=== PATIENT | male | born 1995 | race Two or more races ===

== ENCOUNTER 2019-03-12 22:44 | Emergency (ER) | payer BC ==
[~2019-03-12] VITALS: Ht 180.3 cm; Wt 92.5 kg
[2019-03-12 22:53] VITALS: BP 131/86
[2019-03-12] MEDS ORDERED: DICL50TA4 PO (23:50)
[2019-03-12] MEDS ORDERED: CYCL5TAB PO (23:50)
[2019-03-13] MEDS ORDERED: diazePAM 5 MG TABLET PO ONE
[2019-03-13] MEDS ORDERED: KETOROLAC 60 MG/2 ML VIAL. IM ONE
--- NOTE | 2019-03-13 00:12 | RAD ---
Three-view lumbar spine radiographs 03/12/2019 CLINICAL HISTORY: Low back pain. AP and 2 lateral digital radiographs of lumbar spine were obtained. Minimal S-shaped curvature of the thoracolumbar spine is seen. No fracture or subluxation is seen. Mild degenerative changes are seen involving L4-5 disc space consisting of vertebral endplate sclerosis and minimal anterior and posterior vertebral body osteophyte formation. IMPRESSION: Mild degenerative changes are seen involving the lower lumbar spine. No acute osseous abnormality is seen. Electronically signed by: Rashid Perez MD (03/13/2019 12:09 AM) [facility]
--- NOTE | 2019-03-13 03:45 | PHYS DOC ---
Past Medical History Past Medical History: No Pertinent History Past Surgical History: Appendectomy Alcohol Use: None Drug Use: None Adult General Chief Complaint Chief Complaint: LOWER BACK PAIN OR INJURY HPI HPI Patient is a 23 year old male couple days of low back pain dull moderate radiates to her buttocks happened after lifting a box normal bowel bladder incontinence symptoms moderate worsening with time pain increased with walking no fever He does have a mass on his right upper bicep. He is complaining have it removed on Monday is thinks it could be a skin cancer he is not sure yet it has not been biopsied Review of Systems Review of Systems Constitutional: Denies fever or chills [] Eyes: Denies change in visual acuity, redness, or eye pain [] HENT: Denies nasal congestion or sore throat [] Respiratory: Denies cough or shortness of breath [] Cardiovascular: No additional information not addressed in HPI [] GI: Denies abdominal pain, nausea, vomiting, bloody stools or diarrhea [] : Denies dysuria or hematuria [] Musculoskeletal: Denies back pain or joint pain [] Integument: Denies rash or skin lesions [] Neurologic: Denies headache, focal weakness or sensory changes [] Endocrine: Denies polyuria or polydipsia [] All other systems were reviewed and found to be within normal limits, except as documented in this note. Current Medications Current Medications Current Medications Medications (Trade) Dose Ordered Sig/[facility] Start Time Stop Time Status Last Admin Dose Admin Diazepam (Valium) 5 mg 1X ONCE 03/13/19 00:00 03/13/19 00:01 DC 03/13/19 00:05 5 MG Ketorolac Tromethamine (Toradol Im) 30 mg 1X ONCE 03/13/19 00:00 03/13/19 00:01 DC 03/13/19 00:05 30 MG Allergies Allergies Allergies Coded Allergies Type Severity Reaction Last Updated Verified No Known Drug Allergies 03/12/19 No Physical Exam Physical Exam Constitutional: Well developed, well nourished, no acute distress, non-toxic appearance. [] HENT: Normocephalic, atraumatic, bilateral external ears normal, oropharynx [address], no oral exudates, nose normal. [] Eyes: PERRLA, EOMI, conjunctiva normal, no discharge. [] Neck: Normal range of motion, no tenderness, supple, no stridor. [] Pulmonary: Normal respiratory effort no increased work of breathing no obvious chest wall trauma Abdomen: Bowel sounds normal, soft, no tenderness, no masses, no pulsatile masses. [] Skin: 3-4 cm erythematous raised lesion on the right upper bicep Back: Paraspinous tenderness bilaterally Extremities: No tenderness, no cyanosis, no clubbing, ROM intact, no edema. [] Neurologic: Alert and oriented X 3, normal motor function, normal sensory functi on, no focal deficits noted. [] Psychologic: Affect normal, judgement normal, mood normal. [] Current Patient Data Vital Signs Vital Signs Date Time Temp Pulse Resp B/P (MAP) Pulse Ox O2 Delivery O2 Flow Rate FiO2 03/12/19 22:53 98.6 86 16 131/86 (101) 98 Room Air 98.6 EKG EKG [] Radiology/Procedures Radiology/Procedures [] Impressions: IMPRESSION: Mild degenerative changes are seen involving the lower lumbar spine. No acute osseous abnormality is seen. Electronically signed by: Rashid Helton MD (03/13/2019 12:09 AM) [facility] DICTATED and SIGNED BY: RASHID HELTON MD DATE: 03/13/19 0009 Course & Med Decision Making Course & Med Decision Making Pertinent Labs and Imaging studies reviewed. (See chart for details) []Cord compression by history or physical examination patient is able to ambulate in the emergency room symptomatic treatment given return precautions discussed patient voiced understanding Dragon Disclaimer Dragkalpana Disclaimer This electronic medical record was generated, in whole or in part, using a voice recognition dictation system. Departure Departure Impression: Primary Impression: Low back pain Disposition: 01 HOME, SELF-CARE Condition: STABLE Patient Instructions: Back Pain, Adult, [id number] Scripts Diclofenac Sodium (DICLOFENAC SODIUM) 50 Mg Tablet. 1 TAB PO BID PRN for PAIN, #20 TAB 0 Refills Prov: PITA ROYAL MD 03/12/19 Cyclobenzaprine Hcl (CYCLOBENZAPRINE HCL) 5 Mg Tablet 5 MG PO PRN TID PRN for PAIN, #15 TAB Prov: PITA ROYAL MD 03/12/19 PITA ROYAL MD March 13, 2019 03:45
== END 2019-03-13 00:19 | disposition home or self-care (01) ==
LOC: ER 22:44
DX: M54.5 Low back pain (principal); R22.31 Localized swelling, mass and lump, right upper limb; Z90.89 Acquired absence of other organs
CPT/HCPCS: 72100; 96372; 99284; J1885

== ENCOUNTER 2019-03-27 00:27 | Emergency (ER) | payer BC ==
[~2019-03-27] VITALS: Ht 177.8 cm; Wt 92.5 kg
[~2019-03-27 00:27] MED LIST: CYCL5TAB PO; DICL50TA4 PO
--- NOTE | 2019-03-27 01:08 | PHYS DOC ---
Past Medical History Past Medical History: No Pertinent History Past Surgical History: Appendectomy, Other Additional Past Surgical Histo: TUMOR TO RUE Alcohol Use: None Drug Use: None Adult General Chief Complaint Chief Complaint: Palpitations HPI HPI Patient is a 23 year old male who presents with complaining of elevation of blood pressure. Patient states he had right arm tumor removal under general anesthesia and and had sudden onset of palpitation and mild shortness of breath with elevation of blood pressure around 2330 tonight without chest pain. Patient complaining of bilateral hand paresthesia and lightheadedness. Patient denies history of DVT and immobilization. Patient states his surgeon warned him for possible blood clot and needs to come to ER if develops shortness of breath or palpitation. Review of Systems Review of Systems Constitutional: Denies fever or chills [] Eyes: Denies change in visual acuity, redness, or eye pain [] HENT: Denies nasal congestion or sore throat [] Respiratory: Denies cough or shortness of breath [] Cardiovascular: No additional information not addressed in HPI [] GI: Denies abdominal pain, nausea, vomiting, bloody stools or diarrhea [] : Denies dysuria or hematuria [] Musculoskeletal: Denies back pain or joint pain [] Integument: Denies rash or skin lesions [] Neurologic: Denies headache, focal weakness or sensory changes [] Endocrine: Denies polyuria or polydipsia [] All other systems were reviewed and found to be within normal limits, except as documented in this note. Current Medications Current Medications Current Medications Medications (Trade) Dose Ordered Sig/[facility] Start Time Stop Time Status Last Admin Dose Admin Lorazepam (Ativan Inj) 0.5 mg 1X ONCE 03/27/19 01:30 03/27/19 01:31 DC 03/27/19 01:19 0.5 MG Sodium Chloride 1,000 ml @ 1,000 mls/hr Q1H 03/27/19 01:30 03/27/19 02:29 DC 03/27/19 01:19 1,000 MLS/HR Allergies Allergies Allergies Coded Allergies Type Severity Reaction Last Updated Verified No Known Drug Allergies 03/12/19 No Physical Exam Physical Exam Constitutional: Well developed, well nourished, no acute distress, non-toxic appearance. [] HENT: Normocephalic, atraumatic, bilateral external ears normal, oropharynx moist, no oral exudates, nose normal. [] Eyes: PERRLA, EOMI, conjunctiva normal, no discharge. [] Neck: Normal range of motion, no tenderness, supple, no stridor. [] Cardiovascular: Tachycardia, no murmur [] Lungs & Thorax: Bilateral breath sounds clear to auscultation [] Abdomen: Bowel sounds normal, soft, no tenderness, no masses, no pulsatile masses. [] Skin: Warm, dry, no erythema, no rash. [] Back: No tenderness, no CVA tenderness. [] Extremities: Surgical dressing in right arm, no tenderness, no cyanosis, no clubbing, ROM intact, no edema. [] Neurologic: Alert and oriented X 3, normal motor function, normal sensory function, no focal deficits noted. [] Psychologic: Affect normal, judgement normal, mood normal. [] Current Patient Data Vital Signs Vital Signs Date Time Temp Pulse Resp B/P (MAP) Pulse Ox O2 Delivery O2 Flow Rate FiO2 03/27/19 02:43 84 18 127/83 (98) 99 Room Air 03/27/19 00:30 99.2 99.2 Lab Values Laboratory Tests Test 03/27/19 01:22 White Blood Count 14.3 x10^3/uL (4.0-11.0) H Red Blood Count 4.78 x10^6/uL (4.30-5.70) Hemoglobin 14.1 g/dL (13.0-17.5) Hematocrit 42.7 % (39.0-53.0) Mean Corpuscular Volume 89 fL (79-100) Mean Corpuscular Hemoglobin 30 pg (25-35) Mean Corpuscular Hemoglobin Concent 33 g/dL (31-37) Red Cell Distribution Width 13.2 % (11.5-14.5) Platelet Count 226 x10^3/uL (140-400) Neutrophils (%) (Auto) 91 % (31-73) H Lymphocytes (%) (Auto) 6 % (24-48) L Monocytes (%) (Auto) 4 % (0-9) Eosinophils (%) (Auto) 0 % (0-3) Basophils (%) (Auto) 0 % (0-3) Neutrophils # (Auto) 13.0 x10^3uL (1.8-7.7) H Lymphocytes # (Auto) 0.8 x10^3/uL (1.0-4.8) L Monocytes # (Auto) 0.5 x10^3/uL (0.0-1.1) Eosinophils # (Auto) 0.0 x10^3/uL (0.0-0.7) Basophils # (Auto) 0.0 x10^3/uL (0.0-0.2) Segmented Neutrophils % 82 % (35-66) H Band Neutrophils % 9 % (0-9) Lymphocytes % 8 % (24-48) L Monocytes % 1 % (0-10) Platelet Estimate Adequate (ADEQUATE) D-Dimer (Luma) < 0.27 ug/mlFEU Sodium Level 141 mmol/L (136-145) Potassium Level 4.1 mmol/L (3.5-5.1) Chloride Level 104 mmol/L (98-107) Carbon Dioxide Level 24 mmol/L (21-32) Anion Gap 13 (6-14) Blood Urea Nitrogen 12 mg/dL (8-26) Creatinine 0.9 mg/dL (0.7-1.3) Estimated GFR (Cockcroft-Gault) 105.5 BUN/Creatinine Ratio 13 (6-20) Glucose Level 156 mg/dL (70-99) H Calcium Level 9.4 mg/dL (8.5-10.1) Total Bilirubin 0.6 mg/dL (0.2-1.0) Aspartate Amino Transferase (AST) 16 U/L (15-37) Alanine Aminotransferase (ALT) 30 U/L (16-63) Alkaline Phosphatase 48 U/L (46-116) Creatine Kinase 100 U/L (39-308) Troponin I Quantitative < 0.017 ng/mL (0.000-0.055) Total Protein 7.2 g/dL (6.4-8.2) Albumin 4.1 g/dL (3.4-5.0) Albumin/Globulin Ratio 1.3 (1.0-1.7) Laboratory Tests 03/27/19 01:22 Laboratory Tests 03/27/19 01:22 EKG EKG EKG interpreted by me. EKG at 0022 showed sinus tachycardia at rate of 124, otherwise normal EKG Radiology/Procedures Radiology/Procedures [] Course & Med Decision Making Course & Med Decision Making Pertinent Labs and Imaging studies reviewed. (See chart for details) Evaluation of patient in ER showed 23-year-old male patient developed shortness of breath and dictation minor surgery with general anesthesia today. Patient had unremarkable physical exam except for tachycardia and anxiety that improved with this. Labs including a d-dimer was unremarkable. Plan to discharge patient home with diagnose of anxiety. Dragon Disclaimer Dragon Disclaimer This electronic medical record was generated, in whole or in part, using a voice recognition dictation system. Departure Departure Impression: Primary Impression: Panic attack Disposition: HOME, SELF-CARE (at 0 234) Condition: IMPROVED Referrals: NO PCP (PCP) Patient Instructions: Anxiety and Panic Attacks Additional Instructions: Drink plenty of liquids Follow-up with your primary care physician in 3-5 days Return to ER if not getting better LEIGH ANN PANIAGUA MD March 27, 2019 01:08
[2019-03-27] MEDS ORDERED: IV NORMAL SALINE 1000ML BAG 1,000 ML IV SCH (01:30)
[2019-03-27 01:35] LABS: BASO % 0 % (0-3); EOS % 0 % (0-3); HEMATOCRIT 42.7 % (39.0-53.0); HEMOGLOBIN 14.1 g/dL (13.0-17.5); LYMPH # 0.8 x10^3/uL (1.0-4.8); LYMPH % 6 % (24-48); MEAN CORPUSCULAR HEMOGLOBIN 30 pg (25-35); MEAN CORPUSCULAR HGB CONC 33 g/dL (31-37); MEAN CORPUSCULAR VOLUME 89 fL (79-100); MONO # 0.5 x10^3/uL (0.0-1.1); MONO % 4 % (0-9); NEUT % 91 % (31-73); PLATELET COUNT 226 x10^3/uL (140-400); RED BLOOD COUNT 4.78 x10^6/uL (4.30-5.70); RED CELL DISTRIBUTION WIDTH 13.2 % (11.5-14.5); WHITE BLOOD COUNT 14.3 x10^3/uL (4.0-11.0)
[2019-03-27 01:58] LABS: CALCIUM 9.4 mg/dL (8.5-10.1); CREATININE 0.9 mg/dL (0.7-1.3); GFR 105.5; POTASSIUM 4.1 mmol/L (3.5-5.1)
[2019-03-27 02:05] LABS: ALBUMIN 4.1 g/dL (3.4-5.0); ALBUMIN/GLOBULIN RATIO 1.3 (1.0-1.7); TOTAL BILIRUBIN 0.6 mg/dL (0.2-1.0); TOTAL PROTEIN 7.2 g/dL (6.4-8.2)
[2019-03-27 02:43] VITALS: BP 127/83
[2019-03-27 05:13] LABS: % BANDS 9 % (0-9); % LYMPHS 8 % (24-48); % MONOS 1 % (0-10); % SEGS 82 % (35-66); PLT ESTIMATE ADEQUATE (ADEQUATE)
--- NOTE | 2019-03-27 06:23 | EKG ---
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
== END 2019-03-27 02:43 | disposition home or self-care (01) ==
LOC: ER 00:27
DX: F41.0 Panic disorder [episodic paroxysmal anxiety] (principal); R00.2 Palpitations; R06.02 Shortness of breath; R03.0 Elevated blood-pressure reading, without diagnosis of hypertension; R42 Dizziness and giddiness; R20.2 Paresthesia of skin; R00.0 Tachycardia, unspecified; Z90.89 Acquired absence of other organs
CPT/HCPCS: 36415; 80053; 82550; 84484; 85007; 85025; 85379; 93005; 96361; 96374; 99285; J2060; J7030

== ENCOUNTER 2019-04-01 04:10 | Emergency (ER) | payer BC ==
[~2019-04-01] VITALS: Ht 180.3 cm; Wt 92.5 kg
[2019-04-01 04:26] VITALS: BP 153/90
[2019-04-01] MEDS ORDERED: LORA-434 PO (04:40)
--- NOTE | 2019-04-01 04:44 | PHYS DOC ---
Past Medical History Past Medical History: No Pertinent History Past Surgical History: Appendectomy, Other Additional Past Surgical Histo: TUMOR TO RUE Alcohol Use: None Drug Use: None Adult General Chief Complaint Chief Complaint: ANXIETY/PANIC ATTACK HPI HPI Patient is a 23 year old male who presents with multiple complaints. He says he feels anxious he feels like his legs are constantly wanting to move he feels it is bilateral thighs. Addition he has numbness of both hands both legs around the middle he said his nose felt really cold he said he has a dry mouth he said he is been short of breath just like hard to catch his air he's had this symptom for several days he did have a soft tissue mass removed on his right upper extremity a little while back he came to the ER that next day and he had a negative d-dimer negative otherwise labs look stable no anemia was identified renal function was normal at that time. Apparently had intercourse at 2 AM he will stood up and got lightheaded did not pass out did eventually go to sleep and then woke up around 4 AM with recurrence of the above symptoms that he has been feeling for several days including during her last ER visit. Denies any suicidality thinks he might be a little bit depressed but he actually wanted to work the other day so he would have somebody to talk to but again he does not feel suicidal. Review of Systems Review of Systems Constitutional: Denies fever or chills [] Eyes: Denies change in visual acuity, redness, or eye pain [] HENT: Cardiovascular: No additional information not addressed in HPI [] GI: Denies abdominal pain, nausea, vomiting, bloody stools or diarrhea [] : Denies dysuria or hematuria [] Musculoskeletal: Denies back pain or joint pain [] Integument: Denies rash or skin lesions [] Neurologic: All other systems were reviewed and found to be within normal limits, except as documented in this note. Current Medications Current Medications Current Medications Medications (Trade) Dose Ordered Sig/[facility] Start Time Stop Time Status Last Admin Dose Admin Lorazepam (Ativan Inj) 1 mg 1X ONCE 04/01/19 04:45 04/01/19 04:46 UNV Allergies Allergies Allergies Coded Allergies Type Severity Reaction Last Updated Verified No Known Drug Allergies 03/12/19 No Physical Exam Physical Exam Constitutional: Well developed, well nourished, no acute distress, non-toxic appearance. [] HENT: Normocephalic, atraumatic, bilateral external ears normal, oropharynx moist, no oral exudates, nose normal. [] Eyes: PERRLA, EOMI, conjunctiva normal, no discharge. [] Neck: Normal range of motion, no tenderness, supple, no stridor. [] Cardiovascular:Heart rate regular rhythm, no murmur [] Lungs & Thorax: Bilateral breath sounds clear to auscultation [] Abdomen: Bowel sounds normal, soft, no tenderness, no masses, no pulsatile masses. [] Skin: Warm, dry, no erythema, no rash. [] Well-healing surgical incision right bicep area sutures in place no signs of infection Back: No tenderness, no CVA tenderness. [] Extremities: No tenderness, no cyanosis, no clubbing, ROM intact, no edema. [] Neurologic: Alert and oriented X 3, normal motor function, normal sensory function, no focal deficits noted. [] Psychologic: Affect normal, appears anxious but denies any suicidality Current Patient Data Vital Signs Patient is afebrile heart rate was in the 90s saturation normal blood pressure see nurses notes for complete details EKG EKG [] Radiology/Procedures Radiology/Procedures [] Course & Med Decision Making Course & Med Decision Making Pertinent Labs and Imaging studies reviewed. (See chart for details) []23-year-old male presenting with spectrum of symptoms most consistent with anxiety patient does appear anxious he was given Ativan for treatment of that. I reviewed the lab work from the most recent ER visit just a couple of days ago and everything looked normal no necessary testing to be done at this time patient was reassured to the best of my ability. Dragon Disclaimer Dragon Disclaimer This electronic medical record was generated, in whole or in part, using a voice recognition dictation system. Departure Departure Impression: Primary Impression: Anxiety Disposition: 01 HOME, SELF-CARE Condition: STABLE Patient Instructions: Anxiety and Panic Attacks, [id number] Scripts Lorazepam (ATIVAN) 1 Mg Tablet 1 MG PO BID PRN for ANXIETY / AGITATION, #20 TAB Prov: PITA ROYAL MD 04/01/19 PITA ROYAL MD Apr 01, 2019 04:44
== END 2019-04-01 05:00 | disposition home or self-care (01) ==
LOC: ER 04:10
DX: F41.9 Anxiety disorder, unspecified (principal); R20.0 Anesthesia of skin; R06.02 Shortness of breath; R68.2 Dry mouth, unspecified; R42 Dizziness and giddiness; Z90.89 Acquired absence of other organs
CPT/HCPCS: 96372; 99284; J2060

== ENCOUNTER 2021-11-08 19:33 | Emergency (ER) | payer SELFPAY ==
[~2021-11-08] VITALS: Ht 180.3 cm; Wt 93.6 kg
[~2021-11-08 19:33] MED LIST changes: +LORA-434 PO
[2021-11-08] MEDS ORDERED: KETOROLAC 60 MG/2 ML VIAL. IM ONE (19:45)
[2021-11-08] MEDS ORDERED: MORPHINE SULFATE 2 MG/ML INJ. IM ONE (19:45)
[2021-11-08] MEDS ORDERED: methylPREDNISolone SOD SUCC PF 125 MG/2 ML VIAL. IM ONE (19:45)
[2021-11-08] MEDS ORDERED: LIDOCAINE (700MG/PATCH) PATCH. TD ONE (19:45)
[2021-11-08] MEDS ORDERED: ORPHENADRINE CITRATE 60 MG/2 ML VIAL. IM ONE (19:45)
[2021-11-08] MEDS ORDERED: ACETAMINOPHEN 500 MG TABLET PO ONE (19:45)
--- NOTE | 2021-11-08 19:47 | PHYS DOC ---
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 He presents for evaluation of an acute atraumatic exacerbation of his chronic back pain. He states his leg slipped at work and he felt a pop in his back followed by discomfort to the left low lumbar paraspinal back. Discomfort does not radiate and is constant and is worsened with movement and twisting of the torso. It is better with rest. Severity 8 out of 10 at present. No associated fevers, nausea or vomiting, upper respiratory congestion/rhinorrhea, cough, sore throat, shortness of breath or chest pain of any kind, abdominal pain of any kind, flank pain, midline back pain, dysuria, hematuria, polyuria or oliguria, groin pain, changes in bowel habits, loss of bowel or bladder control, saddle anesthesia, new lower extremity weakness, numbness, tingling, new urinary retention, use of intravenous illegal drugs. Patient states that this is the same pain in the same location that he has repeatedly suffered from in the past. Vital signs are appropriate here and the patient is in no acute distress. He took some hydrocodone that he had leftover from an old surgery prior to arrival without relief of symptoms. Review of Systems Review of Systems A 12 point review of systems was completed and was negative except where noted in HPI above. Current Medications Current Medications Current Medications Medications (Trade) Dose Ordered Sig/[facility] Start Time Stop Time Status Last Admin Dose Admin Acetaminophen (Tylenol) 1,000 mg 1X ONCE 11/08/21 19:45 11/08/21 19:47 DC 11/08/21 19:59 1,000 MG Ketorolac Tromethamine (Toradol Im) 60 mg 1X ONCE 11/08/21 19:45 11/08/21 19:47 DC 11/08/21 20:00 60 MG Lidocaine (Lidoderm) 1 patch 1X ONCE 11/08/21 19:45 11/08/21 19:47 DC 11/08/21 20:05 1 PATCH Methylprednisolone Sodium Succinate (SOLU-Medrol 125MG VIAL) 125 mg 1X ONCE 11/08/21 19:45 11/08/21 19:47 DC 11/08/21 20:01 125 MG Morphine Sulfate (Morphine Sulfate) 2 mg 1X ONCE 11/08/21 19:45 11/08/21 19:47 DC 11/08/21 19:59 2 MG Orphenadrine Citrate (Norflex) 60 mg 1X ONCE 11/08/21 19:45 11/08/21 19:47 DC 11/08/21 20:01 60 MG Allergies Allergies Allergies Coded Allergies Type Severity Reaction Last Updated Verified No Known Drug Allergies 03/12/19 No Physical Exam Physical Exam 25-year-old male appearing nontoxic and in no acute distress. Head is normocephalic and atraumatic. Neck is supple and nontender. Oropharynx is moist. Lungs are clear to auscultation at all stations. There is a normal S1 and S2 without rubs or gallops and capillary refill is appropriate, less than 2 seconds globally. Abdomen is soft, nontender nondistended. Examination of the groin reveals no erythema, warmth, swelling, tenderness to palpation to the scrotum or testicles or perineum or inguinal region or rectum, rashes, lesions, inguinal lymph adenopathy or other abnormality seen. Examination of the back reveals mild low lumbar left paraspinal tenderness to palpation without erythema, warmth, swelling, midline tenderness or other acute finding. Bilateral upper and lower extremities are neurovascularly intact distally with strength out of 5, sensation intact light touch in all nerve distributions, radial, DP and PT pulses 2+ and equal bilaterally, capillary refill less than 2 seconds, hands and feet warm and well-perfused. No dependent peripheral edema distally. No calf tenderness or swelling bilaterally. Homans test is negative bilaterally. No discomfort with ranging of any joints of the bilateral upper or lower extremities. Current Patient Data Vital Signs Vital Signs Date Time Temp Pulse Resp B/P (MAP) Pulse Ox O2 Delivery O2 Flow Rate FiO2 11/08/21 19:59 98 Room Air 11/08/21 19:34 98.0 98 18 135/65 (88) 98.0 EKG EKG [] Radiology/Procedures Radiology/Procedures [] Course & Med Decision Making Course & Med Decision Making Acute on chronic left low lumbar paraspinal back pain, no red flags by history or exam. Will treat with medication as per flowsheet and will then reevaluate. If symptoms improve, likely home with anti-inflammatory and other medication for symptom management to follow-up closely with primary care. Patient understands and agrees with this plan of care. 2240: Patient is resting very comfortably on serial reassessments. Endorses substantial improvement in his presenting discomfort after medications as per flowsheet here in the emergency department. Repeat back exam and repeat neurovascular exam of the lower extremities are completely benign. In view of clinical improvement in this well-appearing young patient, will discharge home with medication for symptom management and instructions to follow-up closely with primary care. Patient understands that if he feels worse instead of better or develops other new symptoms of concern that he should return to the emergency department immediately for reevaluation. All questions are answered. Dragon Disclaimer Dragon Disclaimer This electronic medical record was generated, in whole or in part, using a voice recognition dictation system. Departure Departure Impression: Primary Impression: Dorsalgia of lumbosacral region Disposition: HOME / SELF CARE / HOMELESS Condition: IMPROVED Patient Instructions: Back Pain, Adult Additional Instructions: Follow-up very closely with your primary care doctor in the office in the next 2 to 4 days for a reevaluation of symptoms and a discussion of next best steps in care. Take a 50 mg diclofenac anti-inflammatory pill every 8 hours with food to prevent stomach upset, on a schedule for the next 3 to 5 days and then as needed after that. Apply a Lidoderm patch to your back daily for 12 hours and then remove it. The next day you may apply a new patch. Take the Medrol Dosepak steroids to reduce inflammation and improve pain as per the instructions on the package. For pain not well controlled with other medicines you may take a cyclobenzaprine muscle relaxant pill every 8 hours as needed. Be careful because cyclobenzaprine can make you sleepy so do not drive or work or operate machinery while taking it. Return to the emergency department right away for worsening symptoms of any kind or with any other new symptoms of concern. Scripts Methylprednisolone (MEDROL) 4 Mg Tab.ds.pk 1 PKG PO UD for inflammation, #1 PKG Prov: EDUARDO MIRELES MD 11/08/21 [lidoderm 5% patch] No Conflict Check 1 PATCH TOP DAILY for pain, #14 PATCH Prov: EDUARDO MIRELES MD 11/08/21 Cyclobenzaprine Hcl (CYCLOBENZAPRINE HCL) 10 Mg Tablet 1 TAB PO TID PRN for pain/spasm, #14 TAB Prov: EDUARDO MIRELES MD 11/08/21 Diclofenac Potassium (DICLOFENAC POTASSIUM) 50 Mg Tablet 50 MG PO TID PRN for PAIN, #30 TAB Prov: EDUARDO MIRELES MD 11/08/21 EDUARDO MIRELES MD Nov 08, 2021 19:47
[2021-11-08] MEDS ORDERED: CYCL10TA19 PO (22:58)
[2021-11-08] MEDS ORDERED: DICL50TA2 PO (22:58)
[2021-11-08] MEDS ORDERED: METH4TAB2 PO (22:58)
[2021-11-08] MEDS ORDERED: lidoderm 5% patch TOP (22:58)
[2021-11-08 23:00] VITALS: BP 118/55
== END 2021-11-08 23:15 | disposition home or self-care (01) ==
LOC: ER 19:33
DX: G89.29 Other chronic pain (principal); M54.50 Low back pain, unspecified; G89.11 Acute pain due to trauma; Z90.89 Acquired absence of other organs; W01.0XXA Fall on same level from slipping, tripping and stumbling without subsequent striking against object, initial encounter; Y93.89 Activity, other specified; Y92.89 Other specified places as the place of occurrence of the external cause; Y99.8 Other external cause status
CPT/HCPCS: 96372; 99285; J1885; J2270; J2360; J2930

== ENCOUNTER 2022-03-19 06:26 | Emergency (ER) | payer OTHER ==
[~2022-03-19] VITALS: Ht 180.3 cm; Wt 83.6 kg
[~2022-03-19 06:26] MED LIST changes: +CYCL10TA19 PO; +DICL50TA2 PO; +METH4TAB2 PO; +lidoderm 5% patch TOP
[2022-03-19 06:42] VITALS: BP 162/97
--- NOTE | 2022-03-19 07:06 | PHYS DOC ---
Past Medical History Past Medical History: No Pertinent History, Anxiety Past Surgical History: Appendectomy, Other Additional Past Surgical Histo: TUMOR REMOVAL TO RUE Smoking Status: Never Smoker Alcohol Use: None Drug Use: None General Adult EDM: Chief Complaint: ANXIETY/PANIC ATTACK HPI: HPI: Patient is a 26 year old male who presents with a history of anxiety and panic attacks who presents to the emergency department today with concerns for a panic attack. Patient states that at about 5 AM he used a delta 9 vape pwn He states that shortly thereafter he began to have symptoms of a panic attack. He states that he began to have cold hands and feet and became shaky and jittery. He denies chest pain or shortness of breath. He denies any nausea, vomiting or diarrhea. He states this is similar to his previous panic attacks. He states this is his first time indulging in delta 9. He denies any headache or visual changes. Patient states that he takes venlafaxine daily for his anxiety. He states that when this attack came on he took 1 mg of Ativan which is his emergency medication for panic attacks. He states his symptoms improve mildly. But given that he was still having symptoms he decided to present to the emergency department. Review of Systems: Review of Systems: Constitutional: Denies fever or chills. [] Eyes: Denies change in visual acuity. [] HENT: Denies nasal congestion or sore throat. [] Respiratory: Denies cough or shortness of breath. [] Cardiovascular: Denies chest pain or edema. [] GI: Denies abdominal pain, nausea, vomiting, bloody stools or diarrhea. [] : Denies dysuria. [] Musculoskeletal: Denies back pain or joint pain. [] Integument: Denies rash. [] Neurologic: Denies headache, focal weakness or sensory changes. [] Endocrine: Denies polyuria or polydipsia. [] Lymphatic: Denies swollen glands. [] Psychiatric: Denies depression or anxiety. [] Heart Score: C/O Chest Pain: No Risk Factors: Risk Factors: DM, Current or recent (<one month) smoker, HTN, HLP, family history of CAD, obesity. Risk Scores: Score 0 - 3: 2.5% MACE over next 6 weeks - Discharge Home Score 4 - 6: 20.3% MACE over next 6 weeks - Admit for Clinical Observation Score 7 - 10: 72.7% MACE over next 6 weeks - Early Invasive Strategies Current Medications: Current Medications Medications (Trade) Dose Ordered Sig/Ramiro Start Time Stop Time Status Last Admin Dose Admin Lorazepam (Ativan) 1 mg 1X ONCE 03/19/22 07:30 03/19/22 07:31 Allergies: Allergies: Allergies Coded Allergies Type Severity Reaction Last Updated Verified No Known Drug Allergies 03/12/19 No Physical Exam: PE: Constitutional: Well developed, well nourished, no acute distress, non-toxic appearance. [] HENT: Normocephalic, atraumatic, bilateral external ears normal, oropharynx moist, no oral exudates, nose normal. [] Eyes: PERRLA, EOMI, conjunctiva normal, no discharge. [] Neck: Normal range of motion, no tenderness, supple, no stridor. [] Cardiovascular: Tachycardic, regular rhythm, no murmur [] Lungs & Thorax: Bilateral breath sounds clear to auscultation [] Abdomen: Bowel sounds normal, soft, no tenderness, no masses, no pulsatile ma sses. [] Skin: Warm, dry, no erythema, no rash. [] Back: No tenderness, no CVA tenderness. [] Extremities: No tenderness, no cyanosis, no clubbing, ROM intact, no edema. [] Neurologic: Alert and oriented X 3, normal motor function, normal sensory function, no focal deficits noted. [] Psychologic: Affect normal, judgement normal, mood normal. [] Current Patient Data: Vital Signs: Vital Signs Date Time Temp Pulse Resp B/P (MAP) Pulse Ox O2 Delivery O2 Flow Rate FiO2 03/19/22 06:42 97.2 94 15 162/97 (118) 99 Room Air 97.2 EKG: EKG: [] Radiology/Procedures: Radiology/Procedures: [] Course & Med Decision Making: Course & Med Decision Making Patient was observed in emergency department. He was given an additional 1 mg of Ativan. On reassessment patient's tachycardia has resolved. He states that his symptoms of anxiety and panic have also resolved. We will discharge him home and have him follow-up with his PCP. I have advised him to discontinue using delta 9. [] Dragon Disclaimer: Dragon Disclaimer: This electronic medical record was generated, in whole or in part, using a voice recognition dictation system. Departure Departure Disposition: 01 HOME / SELF CARE / HOMELESS Condition: IMPROVED Referrals: JUDIE ESPINOZA MD (PCP) RISA HICKEY MD March 19, 2022 07:06
== END 2022-03-19 08:47 | disposition home or self-care (01) ==
LOC: ER 06:26
DX: F41.0 Panic disorder [episodic paroxysmal anxiety] (principal)
CPT/HCPCS: 99283